=== PATIENT | male | born 1995 | race Two or more races ===

== ENCOUNTER 2017-06-24 12:32 | Emergency (ER) | payer SELFPAY ==
[~2017-06-24] VITALS: Ht 170.2 cm; Wt 90.7 kg
--- NOTE | 2017-06-24 13:41 | NUR ---
Patient discharged to home in stable conditon. Written and verbal after care instructions given. Patient verbalizes understanding of instructions.PT WITH [employer].
== END 2017-06-24 13:44 | disposition home or self-care (01) ==
LOC: ER 12:32
DX: S61.012A Laceration without foreign body of left thumb without damage to nail, initial encounter (principal); W45.8XXA Other foreign body or object entering through skin, initial encounter; Y93.G1 Activity, food preparation and clean up; Y92.9 Unspecified place or not applicable; Y99.9 Unspecified external cause status
CPT/HCPCS: 12002; 90471; 90715; 99283; A4217; A4663; J3490